=== PATIENT | female | born 1995 | race Caucasian/White ===

== ENCOUNTER 2022-09-28 12:24 | Emergency (ER) | payer SELFPAY ==
[~2022-09-28] VITALS: Ht 157.5 cm; Wt 72.7 kg
[2022-09-28 12:38] VITALS: O2SAT 100
[2022-09-28 12:55] VITALS: TEMP 98.2
[2022-09-28] MEDS ORDERED: KETOROLAC 30MG/ML VIAL IV STA (13:07)
[2022-09-28] MEDS ORDERED: SODIUM CHLORIDE 0.9% 1,000 ML IV ONE (13:15)
[2022-09-28 13:17] VITALS: BP 105/62; PULSE 60; RESP 18
== END 2022-09-28 14:44 | disposition home or self-care (01) ==
LOC: ER 12:25
DX: R51.9 Headache, unspecified (principal); T75.4XXA Electrocution, initial encounter; X58.XXXA Exposure to other specified factors, initial encounter
CPT/HCPCS: 96361; 96374; 99283; J1885; J7030; Z7610

== ENCOUNTER → 2022-10-07 | Outpatient (CLI) | payer OTHER | END | disposition home or self-care (01) | LOC: CARD 09:17 | PROVIDERS: ATTEND Family Medicine Adult Medicine | DX: I08.1 Rheumatic disorders of both mitral and tricuspid valves (principal); R07.89 Other chest pain; Z95.810 Presence of automatic (implantable) cardiac defibrillator | CPT/HCPCS: 93306 ==